=== PATIENT | female | born 1980 | race Caucasian/White ===

== ENCOUNTER 2017-11-22 14:50 | Emergency (ER) | payer OTHER ==
[2017-11-22] MEDS ORDERED: ASPIRIN 81 MG TABLET, CHEWABLE PO ONE (15:43)
--- NOTE | 2017-11-22 16:20 | RADIOLOGY REPORT (SQ) ---
EXAM DESCRIPTION: CHEST 2 VIEWS COMPLETED DATE/TIME: 11/22/2017 4:09 pm REASON FOR STUDY: cp COMPARISON: None. EXAM PARAMETERS: NUMBER OF VIEWS: two views TECHNIQUE: Digital Frontal and Lateral radiographic views of the chest acquired. RADIATION DOSE: NA LIMITATIONS: none FINDINGS: LUNGS AND PLEURA: No opacities, masses or pneumothorax. No pleural effusion. MEDIASTINUM AND HILAR STRUCTURES: No masses or contour abnormalities. HEART AND VASCULAR STRUCTURES: Heart normal size. No evidence for failure. BONES: No acute findings. HARDWARE: None in the chest. OTHER: No other significant finding. IMPRESSION: NO ACUTE RADIOGRAPHIC FINDING IN THE CHEST. TECHNICAL DOCUMENTATION: JOB ID: [id number] Expert [employer]- All Rights Reserved Reading location - IP/workstation name: [email or web address]
[2017-11-22 17:00] LABS: INTERNATIONAL RATION (INR) 1.63; PROTHROMBIN TIME 20.2 SEC (11.4-15.4)
[2017-11-22 17:08] LABS: ABSOLUTE EOSINOPHILS # (AUTO) 0.1 10^3/uL (0.0-0.6); ABSOLUTE LYMPHOCYTES (AUTO) 1.7 10^3/uL (0.5-4.7); ABSOLUTE MONOCYTES (AUTO) 0.5 10^3/uL (0.1-1.4); ABSOLUTE NEUT (AUTO) 4.2 10^3/uL (1.7-8.2); BASOPHILS % (AUTO) 0.5 % (0-2); EOSINOPHILS % (AUTO) 1.2 % (0-6); HEMATOCRIT 42.6 % (36.0-47.0); HEMOGLOBIN 14.3 g/dL (12.0-15.5); LYMPHOCYTES % (AUTO) 25.9 % (13-45); MEAN CORPUSCULAR HEMOGLOBIN 29.5 pg (27.0-33.4); MEAN CORPUSCULAR HGB CONC 33.5 g/dL (32.0-36.0); MEAN CORPUSCULAR VOLUME 88 fl (80-97); MONOCYTES % (AUTO) 7.8 % (3-13); PLATELET COUNT 224 10^3/uL (150-450); RED BLOOD COUNT 4.84 10^6/uL (3.72-5.28); RED CELL DISTRIBUTION WIDTH 14.9 % (11.5-14.0); SEGMENTED NEUTROPHILS % (AUTO) 64.6 % (42-78); TOTAL CELLS COUNTED % (AUTO) 100 %; WHITE BLOOD COUNT 6.5 10^3/uL (4.0-10.5)
[2017-11-22 17:18] LABS: ALANINE AMINOTRANSFERASE 24 U/L (9-52); ALBUMIN 3.9 g/dL (3.5-5.0); ALKALINE PHOSPHATASE 70 U/L (38-126); ANION GAP 9 (5-19); ASPARTATE AMINO TRANSFERASE 19 U/L (14-36); BILIRUBIN,DIRECT 0.3 mg/dL (0.0-0.4); BILIRUBIN,TOTAL 0.6 mg/dL (0.2-1.3); BLOOD UREA NITROGEN 12 mg/dL (7-20); CALCIUM 8.8 mg/dL (8.4-10.2); CARBON DIOXIDE 25 mmol/L (22-30); CHLORIDE 107 mmol/L (98-107); CREATINE KINASE 65 U/L (30-135); GLUCOSE 93 mg/dL (75-110); POTASSIUM 4.2 mmol/L (3.6-5.0); SODIUM 141.4 mmol/L (137-145); TOTAL PROTEIN 6.7 g/dL (6.3-8.2)
[2017-11-22 17:29] LABS: CREATINE KINASE MB < 0.22 ng/mL (<4.55); TROPONIN I < 0.012 ng/mL
--- NOTE | 2017-11-22 17:47 | ER Document Report ---
ED General - General Chief Complaint: Chest Pain Stated Complaint: CHEST PAIN, DIZZY, ARM PAIN Time Seen by Provider: 11/22/17 15:40 - HPI Patient complains to provider of: Chest pain Notes: Patient coming in complaining of right-sided chest pain no triage states shortness of breath however upon my evaluation denies any shortness of breath patient states went to her PCP today is that she thought she may have pulled a muscle however was told to come to the ER for further evaluation. Patient has a current history of a DVT and is currently on Coumadin. Patient denies any fevers chills nausea vomiting diarrhea. Patient states has a history of factor V Leiden deficiency therefore cannot be on Eliquis or Pradaxa. Patient states she has increased her vegetable use and is unclear what her Coumadin level is at this time. Patient otherwise resting comfortably states pain is in her right arm right side of the neck and in the right side of her chest patient is convinced that she may have sprained the muscle. - Related Data Allergies/Adverse Reactions: amoxicillin [From Augmentin] Allergy (Verified 11/22/17 15:48) clavulanic acid [From Augmentin] Allergy (Verified 11/22/17 15:48) gentamicin [From Garamycin] Allergy (Verified 11/22/17 15:48) guaifenesin Allergy (Verified 11/22/17 15:48) latex Allergy (Verified 11/22/17 15:48) levofloxacin [From Levaquin] Allergy (Verified 11/22/17 15:48) Sulfa (Sulfonamide Antibiotics) Allergy (Verified 11/22/17 15:48) theophylline [From Slo-Phyllin] Allergy (Verified 11/22/17 15:48) dye Allergy (Uncoded 11/22/17 15:48) Past Medical History - Social History Smoking Status: Current Every Day Smoker Chew tobacco use (# tins/day): No Frequency of alcohol use: Occasional Drug Abuse: None Family History: Reviewed & Not Pertinent Patient has suicidal ideation: No Patient has homicidal ideation: No Pulmonary Medical History: Reports: Hx Asthma Renal/ Medical History: Denies: Hx Peritoneal Dialysis Past Surgical History: Reports: Hx Cholecystectomy Review of Systems - Review of Systems Constitutional: No symptoms reported EENT: No symptoms reported Cardiovascular: Chest pain Respiratory: No symptoms reported Gastrointestinal: No symptoms reported Genitourinary: No symptoms reported Female Genitourinary: No symptoms reported Musculoskeletal: No symptoms reported Skin: No symptoms reported Hematologic/Lymphatic: No symptoms reported Neurological/Psychological: No symptoms reported -: Yes All other systems reviewed and negative Physical Exam - Vital signs Vitals: Temp Pulse Resp BP Pulse Ox 98.4 F 95 18 144/88 H 98 11/22/17 15:02 11/22/17 15:02 11/22/17 15:02 11/22/17 15:02 11/22/17 15:02 Interpretation: Normal - General General appearance: Appears well, Alert - HEENT Head: Normocephalic, Atraumatic Eyes: Normal Pupils: PERRL - Respiratory Respiratory status: No respiratory distress Chest status: Nontender Breath sounds: Normal Chest palpation: Normal - Cardiovascular Rhythm: Regular Heart sounds: Normal auscultation Murmur: No - Abdominal Inspection: Normal Distension: No distension Bowel sounds: Normal Tenderness: Nontender Organomegaly: No organomegaly - Back Back: Normal, Nontender - Extremities General upper extremity: Normal inspection, Nontender, Normal color, Normal ROM , Normal temperature General lower extremity: Normal inspection, Nontender, Normal color, Normal ROM , Normal temperature, Normal weight bearing. No: Marika's sign - Neurological Neuro grossly intact: Yes Cognition: Normal Orientation: AAOx4 [place] Coma Scale Eye Opening: Spontaneous [place] Coma Scale Verbal: Oriented [place] Coma Scale Motor: Obeys Commands [place] Coma Scale Total: 15 Speech: Normal Motor strength normal: LUE, RUE, LLE, RLE Sensory: Normal - Psychological Associated symptoms: Normal affect, Normal mood - Skin Skin Temperature: Warm Skin Moisture: Dry Skin Color: Normal Course - Re-evaluation Re-evalutation: 11/22/17 20:34 Chest x-ray troponin EKG did not show any critical pathology. INR is subtherapeutic at 1.6 patient is to take 9 mg of Coumadin tonight and follow-up with her PCP. Patient states understanding thankful for treatment will be discharged home - Vital Signs Vital signs: Temp Pulse Resp BP Pulse Ox 98.8 F 72 17 118/82 97 11/22/17 18:19 11/22/17 18:19 11/22/17 18:19 11/22/17 18:19 11/22/17 18:19 - Laboratory Result Diagrams: 11/22/17 16:30 11/22/17 16:30 Laboratory results interpreted by me: 11/22/17 11/22/17 16:30 16:30 RDW 14.9 H PT 20.2 H APTT 36.0 H Discharge - Discharge Clinical Impression: right sided arm pain Chest pain, unspecified Qualifiers: Chest pain type: unspecified Qualified Code(s): R07.9 - Chest pain, unspecified Condition: Good Disposition: HOME, SELF-CARE Instructions: Chest Wall Pain ([facility]), Chest Pain of Unclear Cause ([facility]) Additional Instructions: Laboratory studies today show no signs of cardiac ischemia or lung issues lung infection surgical pathology causing your pain. Would recommend taking Tylenol Motrin for your pain control return to ER symptoms worsen follow-up with your primary care physician. Prescriptions: Ibuprofen [Motrin 600 mg Tablet] 600 mg PO Q8HP PRN #21 tablet PRN Reason: Referrals: BEN ROMERO MD [PEDIATRICS] - Follow up as needed
[2017-11-22 18:24] VITALS: BP 118/82
--- NOTE | 2017-11-22 22:02 | EKG REPORT ---
SEVERITY:- OTHERWISE NORMAL ECG - SINUS TACHYCARDIA BORDERLINE RIGHT AXIS DEVIATION : Confirmed by: Hetal Parekh MD 22-Nov-2017 22:01:31
== END 2017-11-22 18:19 | disposition home or self-care (01) ==
LOC: ER 14:50
DX: R07.9 Chest pain, unspecified (principal); M79.601 Pain in right arm; M54.2 Cervicalgia; F17.200 Nicotine dependence, unspecified, uncomplicated; J45.909 Unspecified asthma, uncomplicated; D68.2 Hereditary deficiency of other clotting factors; I82.409 Acute embolism and thrombosis of unspecified deep veins of unspecified lower extremity; Z79.01 Long term (current) use of anticoagulants; Z88.0 Allergy status to penicillin; Z91.040 Latex allergy status; Z88.1 Allergy status to other antibiotic agents; Z88.2 Allergy status to sulfonamides; Z88.8 Allergy status to other drugs, medicaments and biological substances
CPT/HCPCS: 36415; 71046; 80053; 82550; 82553; 84484; 85025; 85610; 85730; 93005; 93010; 99285